=== PATIENT | female | born 1940 | race African-American/Black ===

== ENCOUNTER 2021-07-08 02:55 | Emergency (ER) | payer OTHER ==
[~2021-07-08] VITALS: Ht 162.6 cm; Wt 65.4 kg
--- NOTE | ~2021-07-08 | EMS ---
[address] [address] EMS Patient Care Report Name: TRAY URIOSTEGUI Room #: [facility] Quiroz#: [id number] Admission: 07/08/21 Attend Phys: Discharge: Date of : 40 Report #: [id number] THIS REPORT FOR: //name// Report Transmitted: 07/08/2021 03:25 EMS Care Summary [facility]-ACT Incident [id number] @ 07/08/2021 02:20 Incident Location [address] [place] [address] Patient TRAY URIOSTEGUI Female, 81 Years 1940 Patient Address [address] [place] [address] Patient History Diabetes,Breast Cancer,Back Pain (Chronic), Patient Allergies Morphine,Dilaudid, Patient Medications Gabapentin, Chief Complaint "I have chest pain" Disposition Transported No Lights/[place] Dispatch Reason Breathing Problem Transported To [facility] Narrative [id number] dispatched out of [facility] for C1 shortness of breath. Upon arrival to the scene, pt can be found seated in a chair in the living room. The pt can be found in the care of [facility]. The pt appears alert and oriented and is tracking EMS crew upon arrival. The pt appears to be in pain but in no imminent [address] [address] EMS Patient Care Report Name: TRAY URIOSTEGUI Room #: [facility] Quiroz#: [id number] Admission: 07/08/21 Attend Phys: Discharge: Date of : 40 Report #: [id number] distress. The pt's skin is pink, warm, and dry. No audible breath sounds, JVD, accessory muscle use or body fluids noted. No fever, cough or shortness of breath noted. No trauma noted. Upon arrival to the scene, pt stated that she has been "having problems" for the last year with "shortness of breath and sweatiness". The pt stated that she has been going to the doctor's for "tests" but that they have been unable to find anything. The pt stated that the chest pain and shortness of breath started about "15 minutes" prior to EMS arrival. The pt stated that this is different from normal as the chest pain is worse today. The pt stated that the chest pain is in the center of the chest and "goes around to the left" breast. The pt stated that the pain is worse when she takes a deep breath. Upon arrival to the scene, pt contact is made. Primary and secondary assessment was performed. Vital signs were acquired. The pt was helped to stand and walk outside to the cot with minimal assistance. The pt was secured to the cot and loaded into the ambulance. 12 lead and vascular access were obtained. Aspirin was administered. Transport to [place] was started. Biocom was given with no questions or orders. Upon arrival to the hospital, the pt was moved to the bed in ED room 11. Report was given and care was transferred to ED RN. Initial Vitals @PTAP: 66,R: 16,BP: 148/96,Pain: 10/10,GCS: 15,SpO2: 98,Revised Trauma: 12, @02:50P: 54,R: 16,Pain: 10/10,GCS: 15,SpO2: 98, @02:39P: 53,R: 16,BP: 143/98,Pain: 10/10,GCS: 15,SpO2: 97,Revised Trauma: 12, @02:37P: 61,R: 20,Pain: 10/10,GCS: 15,Temp: 98.2F,SpO2: 95,MT Suspected: false Impression Chest pain on breathing Procedures @02:47 Surgical Mask on Patient Response: Unchanged @02:40 IV Therapy - Saline Lock 10cc (20 ga) Site: Forearm-Right Response: UnchangedSucceeded @02:42 Aspirin - 324 Milligrams (mg) - Oral Response: Improved @02:37 12-Lead ECG Response: UnchangedSucceeded Timeline KENNEL AIDE,BP: 148/96 M,PULSE: 66,RR: 16 R,SPO2: 98 Ox,ETCO2: ,BG: ,PAIN: 10,GCS: 15, 02:18,Call Received 02:18,Psap Call 02:20,Dispatched 02:21,En Route 02:28,On Scene [facility] [address] [place] [address] EMS Patient Care Report Name: TRAY URIOSTEGUI Room #: [facility] Quiroz#: [id number] Admission: 07/08/21 Attend Phys: Discharge: Date of : 40 Report #: [id number] 02:29,At Patient 02:37,12-Lead ECG,Response: UnchangedSucceeded, 02:37,BP: / M,PULSE: 61,RR: 20 R,SPO2: 95 Ox,ETCO2: ,BG: ,PAIN: 10,GCS: 15, 02:39,BP: 143/98 M,PULSE: 53,RR: 16 R,SPO2: 97 Ox,ETCO2: ,BG: ,PAIN: 10,GCS: 15, 02:40,IV Therapy - Saline Lock 10cc 20 ga Site: Forearm-Right,Response: UnchangedSucceeded, 02:42,Aspirin - 324 Milligrams (mg) - Oral,Response: Improved 02:43,Depart Scene 02:47,Surgical Mask on Patient,Response: Unchanged 02:50,BP: / M,PULSE: 54,RR: 16 R,SPO2: 98 Ox,ETCO2: ,BG: ,PAIN: 10,GCS: 15, 02:50,At Destination 03:06,Call Closed Disclaimer v1.1 Copyright 2021 [employer] This EMS Care Summary contains data elements from the applicable legal record (which may be displayed differently). It is designed to provide pertinent information for the following purposes: continuity of care, clinical quality, and state data reporting. The complete legal record is available to ED staff and administrators of the receiving hospital in [employer]'s Patient Tracker. All data is provided "as is."
[2021-07-08] MEDS ORDERED: GABAPENTIN600 M1 PO (03:30)
[2021-07-08 03:33] LABS: ABSOLUTE NEUTROPHILS 3.7 thou/uL (1.4-8.2); BASOPHILS 1.4 % (0.0-2.0); EOSINOPHILS 3.5 % (0.0-3.0); HEMOGLOBIN 12.5 gm/dL (12.0-15.0); LYMPHOCYTES 30.4 % (24.0-44.0); MCH 30.7 pg (26.0-34.0); MCHC 32.8 g/dL (28.0-37.0); MCV 93.5 fL (80.0-100.0); MONOCYTES 6.6 % (1.0-8.0); PLATELET COUNT 202 thou/uL (150-400); POLYS 58.1 % (36.0-66.0); RBC 4.07 mil/uL (4.20-5.00); RDW 14.5 % (10.5-14.5); WBC 6.4 thou/uL (4.0-11.0)
[2021-07-08 03:41] LABS: CALCIUM 8.8 mg/dL (8.5-10.1); CREATININE 0.9 mg/dL (0.6-1.0)
[2021-07-08 03:48] LABS: URINE BILIRUBIN NEGATIVE (Negative); URINE BLOOD 2+ (Negative); URINE CLARITY CLEAR; URINE COLOR YELLOW; URINE GLUCOSE-RANDOM* NEGATIVE (Negative); URINE KETONES NEGATIVE (Negative); URINE LEUKOCYTES-REFLEX NEGATIVE (Negative); URINE NITRITE-REFLEX NEGATIVE (Negative); URINE PROTEIN (DIPSTICK) NEGATIVE (Negative); URINE SPECIFIC GRAVITY 1.015 (1.005-1.035); URINE UROBILINOGEN 0.2 E.U./dl (0.2-1.0)
[2021-07-08 03:51] LABS: ALBUMIN 3.1 g/dL (3.4-5.0); DIRECT BILIRUBIN 0.2 mg/dL (<0.1-0.2); TOTAL BILIRUBIN 0.9 mg/dL (0.2-1.0); TOTAL PROTEIN 5.5 g/dL (6.4-8.2)
[2021-07-08 04:19] LABS: MUCUS None Seen strn/LPF (None Seen); SQUAMOUS None Seen /LPF (0-3); TRANSITIONAL EPITHEL CELL 0-3 Few /LPF (None Seen)
[2021-07-08 04:20] LABS: BACTERIA-REFLEX None Seen /HPF (None Seen); CASTS None Seen /LPF (None Seen); CRYSTALS None Seen /LPF (None Seen); URINE RBC 1-2 Rare /HPF (NONE SEEN); URINE WBC-REFLEX None Seen /HPF (0-5)
[2021-07-08 06:01] VITALS: BP 148/73
--- NOTE | 2021-07-08 10:59 | EKG ---
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: : 1940 Requested By: Mihai Naejra Order Number: [id number] MD: Justice Rivera Measurements Intervals [place] Rate: 55 P: 17 CA: 176 QRS: -19 QRSD: 102 T: 29 QT: 437 QTc: 418 Interpretive Statements Sinus rhythm Borderline left axis deviation Borderline ST depression No previous ECG available for comparison Electronically Signed On 07-08-2021 10:58:54 PSYCHIATRIC SPECIALIST by Justice Rivera [email or web address] <ELECTRONICALLY SIGNED> By: Justice Rivera MD, [facility] 07/08/21 1058 [id number] Justice Rivera MD, FACC /EPI
--- NOTE | 2021-07-08 10:59 | EKG ---
[place] [address] [facility] [place] [address] ELECTROCARDIOGRAM REPORT Name: TRAY URIOSTEGUI Room #: [facility] Gabriella#: [id number] Admission: 07/08/21 Attend Phys: Discharge: 07/08/21 Date of : 40 Report #: [id number] [facility] ED Test Date: 2021-07-08 Test Time: 05:27:35 Pat Name: TRAY URIOSTEGUI Department: Room: Gender: F Property Site Manager: NISREEN : 1940 Requested By: Mihai Najera Order Number: [id number] MD: Justice Rivera Measurements Intervals [place] Rate: 48 P: 19 [place]: 182 QRS: -23 QRSD: 97 T: 26 QT: 447 QTc: 400 Interpretive Statements Sinus bradycardia Borderline left axis deviation Minimal ST depression, anterolateral leads Compared to ECG 07/08/2021 03:06:53 No significant change was found Electronically Signed On 07-08-2021 10:59:33 SACK FILLER by Justice Rivera [email or web address] <ELECTRONICALLY SIGNED> By: Justice Rivera MD, [facility] 07/08/21 1059 0527 6 Justice Rivera MD, FACC /EPI
== END 2021-07-08 06:10 | disposition home or self-care (01) ==
LOC: ER 02:55
PROVIDERS: Student in an Organized Health Care Education/Training Program
DX: R07.89 Other chest pain (principal); Z20.822 Contact with and (suspected) exposure to COVID-19; Z79.899 Other long term (current) drug therapy